=== PATIENT | male | born 1950 | race Caucasian/White ===

== ENCOUNTER 2021-02-06 05:43 | Observation (INO) ==
[2021-02-06] MEDS ORDERED: Famotidine IV 10 MG/ML 2 ml VIAL (20 mg) IV ONE (06:00)
[2021-02-06] MEDS ORDERED: Lactated Ringers 1000 ml BAG 1,000 ML IV SCH ×3 (06:00→12:00)
[2021-02-06] MEDS ORDERED: Dexamethasone IV 4 MG/ML VIAL 1 ml VIAL IV SLOW PU ONE (06:00)
[2021-02-06] MEDS ORDERED: Buffered Lidocaine 1% SYRIN 1 ml INTRADERM ONE ×3 (06:00→06:12)
[2021-02-06] MEDS ORDERED: Dexamethasone IV 4 MG/ML VIAL 1 ml VIAL ONE (06:11)
[2021-02-06] MEDS ORDERED: Famotidine IV 10 MG/ML 2 ml VIAL (20 mg) ONE (06:12)
[2021-02-06] MEDS ORDERED: ceFAZolin 2 GM in NS PREMIX 2 GM/100 ML BAG IVPB ONE (06:12)
[2021-02-06] MEDS ORDERED: Vancomycin 1,000 MG VIAL ONE ×2 (07:08→09:39)
[2021-02-06] MEDS ORDERED: Bupivacaine 0.5% W/EPI SDV 10 ML VIAL INJ ONE (07:08)
[2021-02-06] MEDS ORDERED: Midazolam 2 mg/2 ml VIAL 1 mg/ml 2 ml VIAL (2 mg) ONE (07:24)
[2021-02-06] MEDS ORDERED: fentaNYL 100 mcg/2 ml 50 MCG/ML VIAL ONE ×3 (07:24→11:44)
[2021-02-06] MEDS ORDERED: ROPIVACAINE 5 MG/ML 30 ML BTL (0.5%) ONE (07:29)
[2021-02-06] MEDS ORDERED: Naloxone 0.4 mg VIAL 0.4 mg/ml 1 ml VIAL IV PRN (08:25)
[2021-02-06] MEDS ORDERED: HYDROcodone/ACETAMIN 5/325 mg TAB PO PRN (08:25)
[2021-02-06] MEDS ORDERED: oxyCODONE/Acetamin 5/325 mg TAB PO PRN (08:25)
[2021-02-06] MEDS ORDERED: Prochlorperazine 5 mg/ml 2 ml VIAL (10 mg) IV PRN (08:25)
[2021-02-06] MEDS ORDERED: Propofol 10 MG/ML 20 ML BTL ONE ×2 (10:06→10:49)
[2021-02-06] MEDS ORDERED: Ondansetron 4 mg VIAL 2 MG/ML 2 ml VIAL IV PRN (11:31)
[2021-02-06] MEDS ORDERED: Magnesium Hydroxide LIQ 30 ML UDC PO PRN (11:31)
[2021-02-06] MEDS ORDERED: diPHENhydraMINE IV 50 MG/ML 1 ml VIAL (BENADRYL) IV PRN (11:31)
[2021-02-06] MEDS ORDERED: Morphine 2 MG/ML SYRINGE IV PRN (11:31)
[2021-02-06] MEDS ORDERED: Ondansetron ODT 4 mg TAB 4 MG TAB PO PRN (11:31)
[2021-02-06] MEDS ORDERED: diPHENhydraMINE 25 mg TAB PO PRN (11:31)
[2021-02-06] MEDS: fentaNYL 100 mcg/2 ml 50 MCG/ML VIAL IV PRN ×4 (11:31→11:55)
[2021-02-06] MEDS ORDERED: Lactulose 30 ml UDC PO PRN (11:31)
[2021-02-06] MEDS ORDERED: HYDROcodone/ACETAMIN 5/325 mg TAB ONE (11:34)
[2021-02-06] MEDS: ceFAZolin 1 GM ADVAN 1 GM in NS 0.9% 50 ML 50 ML IVPB SCH (15:58)
[2021-02-06] MEDS: NS 0.9% 1000 ml BAG 1,000 ML IV SCH (19:11)
[2021-02-06] MEDS: Magnesium Hydroxide LIQ 30 ML UDC PO SCH (19:54)
[2021-02-07] MEDS: ceFAZolin 1 GM ADVAN 1 GM in NS 0.9% 50 ML 50 ML IVPB SCH ×2 (00:06→07:40)
[2021-02-07] MEDS: NS 0.9% 1000 ml BAG 1,000 ML IV SCH ×2 (04:02→05:51)
[2021-02-07 05:26] LABS: Hematocrit 35 % (42-52); Mean Platelet Volume 8.1 fL (7.4-10.4); Platelet Count 287 10^3/uL (150-450)
[2021-02-07 05:39] LABS: Calcium 8.7 mg/dL (8.6-10.3); EGFR African American 128.9 (>60); EGFR Non-African American 106.5 (>60); Potassium 3.8 mmol/L (3.5-5.0)
[2021-02-07] MEDS: Magnesium Hydroxide LIQ 30 ML UDC PO SCH (07:40)
[2021-02-07 08:17] VITALS: BP 154/74
[2021-02-07] MEDS ORDERED: Pneumococcal Vac 23-Polyvalent IM ONE (09:00)
[2021-02-07] MEDS ORDERED: Vitamin THERAPEUTIC TAB PO SCH (09:00)
== END 2021-02-07 11:23 | disposition home or self-care (01) ==
LOC: OR 05:43 → SSU 05:43
PROVIDERS: ADMIT Orthopaedic Surgery; ATTEND Orthopaedic Surgery

== ENCOUNTER 2024-02-11 15:41 | Observation (INO) ==
[2024-02-11 16:08] LABS: ABS Basophils 0.1 10^3/uL (0.0-0.1); ABS Eosinophils 0.1 10^3/uL (0.0-0.5); ABS Lymphocytes 1.9 10^3/uL (1.0-4.8); ABS Monocytes 0.7 10^3/uL (0.0-1.1); Eosinophil % 1.1 %; Lymphocyte % 17.4 %; Mean Corpuscular Hemoglobin 27.9 pg (27-33); Mean Corpuscular Hgb Conc 33.3 g/dL (31-36); Mean Corpuscular Volume 83.8 fL (80-97); Mean Platelet Volume 7.8 fL (7.5-11.2); Platelet Count 285 10^3/uL (150-450); Red Blood Count 5.02 10^6/uL (4.06-5.63); Red Cell Distribution Width 13.9 % (12-17); White Blood Count 10.8 10^3/uL (3.6-10.2)
[2024-02-11 16:15] LABS: INR 1.13 (0.85-1.14)
[2024-02-11] MEDS: Iodixanol (CONTRAST) 320 MG/ML 100 ML SDV IV ONE (16:29)
[2024-02-11] MEDS: NS 0.9% 1000 ml BAG 1,000 ML IV ONE (16:53)
[2024-02-11] MEDS: Ondansetron 4 mg VIAL 2 MG/ML 2 ml VIAL IV ONE (16:53)
[2024-02-11 16:56] LABS: Albumin 4.5 g/dL (3.2-5.2); Albumin/Globulin Ratio 1.7 (1-3); Calcium 9.3 mg/dL (8.6-10.3); Creatinine, Serum 1.06 mg/dL (0.67-1.17); Globulin 2.6 g/dL (2-4); Potassium 3.3 mmol/L (3.5-5.0); Total Bilirubin 0.6 mg/dL (0.2-1.0); Total Protein 7.1 g/dL (6.4-8.9); eGFR CKD-EPI 74.6 (>60)
[2024-02-11 17:35] LABS: High Sensitivity Troponin 1 Hr 6 pg/mL (<20)
[2024-02-11] MEDS ORDERED: Ondansetron ODT 4 mg TAB 4 MG TAB SL PRN (17:56)
[2024-02-11] MEDS: Potassium Chlor 20 meq TAB.ER PO ONE (20:32)
[2024-02-11 21:51] LABS: Urine Appearance Clear; Urine Bilirubin Negative (Negative); Urine Blood Negative (Negative); Urine Color Light-Yellow; Urine Glucose Negative (Negative); Urine Ketones Trace (Negative); Urine Nitrite Negative (Negative); Urine Protein Negative (Negative); Urine Specific Gravity 1.026 (1.002-1.030); Urine Urobilinogen Negative (Negative)
[2024-02-12 06:13] LABS: ABS Eosinophils 0.1 10^3/uL (0.0-0.5); ABS Lymphocytes 1.3 10^3/uL (1.0-4.8); ABS Monocytes 0.6 10^3/uL (0.0-1.1); Eosinophil % 0.9 %; Hematocrit 39.8 % (38-53); Hemoglobin 13.8 g/dL (13.2-16.3); Lymphocyte % 14.5 %; Mean Corpuscular Hemoglobin 28.9 pg (27-33); Mean Corpuscular Hgb Conc 34.6 g/dL (31-36); Mean Corpuscular Volume 83.5 fL (80-97); Mean Platelet Volume 7.7 fL (7.5-11.2); Platelet Count 264 10^3/uL (150-450); Red Blood Count 4.77 10^6/uL (4.06-5.63)
[2024-02-12 06:29] LABS: Calcium 9.1 mg/dL (8.6-10.3); Creatinine, Serum 0.73 mg/dL (0.67-1.17); Potassium 3.8 mmol/L (3.5-5.0); eGFR CKD-EPI 96.7 (>60)
[2024-02-12] MEDS: Aspirin EC 81 mg TAB.EC (enteric coated) PO SCH (08:07)
[2024-02-12 08:13] VITALS: BP 159/81
== END 2024-02-12 11:50 | disposition home or self-care (01) ==
LOC: ED 15:41 → EDHOLD 15:41 → SUATTDRO 17:54 → MEDTELE 23:07
PROVIDERS: ADMIT Internal Medicine; ATTEND Hospitalist